=== PATIENT | female | born 1995 | race Caucasian/White ===

== ENCOUNTER 2017-07-18 16:11 | Outpatient (CLI) | payer OTHER ==
--- NOTE | 2017-07-18 17:43 | RAD ---
THREE VIEWS LEFT HIP: Indication: Left hip pain. Comparison: None. FINDINGS: Left hip is radiographically normal. Soft tissues are normal appearing. IMPRESSION: No acute left hip abnormality. POS: [facility]
== END 2017-07-18 16:12 | disposition home or self-care (01) ==
LOC: RAD 16:11
PROVIDERS: ATTEND Physician Assistant
DX: M25.552 Pain in left hip (principal)